=== PATIENT | male | born 1980 | race Caucasian/White ===

== ENCOUNTER 2022-07-18 13:31 | Emergency (ER) | payer MEDICARE, SELFPAY ==
[2022-07-18 13:32] VITALS: BP 164/148; PULSE 110; RESP 18; TEMP 35.5; O2SAT 91; BMI 29.5
--- NOTE | 2022-07-18 13:41 | EX.ED.VIS.PS ---
HPI HPI - Psych History of Present Illness Chief Complaint: Mental Health Narrative Narrative: 41-year-old male presenting with chief complaint of waking up this morning with somebody else's feet and hands. He requests a DNA test on his feet and hands to see who they belong to. He states he can see a clearly demarcated line near his ankles where new feet were attached. Patient does not have any pain. He states he is from [facility] and does not know how long he has been here and does not know how he got here. He has no suicidal or homicidal ideation. [facility] Medical History Bipolar 1 disorder Home Medications NK 07/18/22 [History Last Taken Unknown] Allergy/AdvReac Type Severity Reaction Status Date / Time No Known Allergies Allergy Verified 07/18/22 13:32 Social History Smoking Status: Current every day smoker tobacco type: cigarettes ROS ROS ED Constitutional Constitutional ED: Denies chills or fever(s) Eyes Eyes: Denies change in vision or diplopia ENT ENT ED: Denies rhinorrhea or sore throat Cardiovascular Cardiovascular: Denies chest pain or palpitations Respiratory/Chest Respiratory/Chest: Denies cough or dyspnea Gastrointestinal Gastrointestinal: Denies abdominal pain or constipation Genitourinary Genitourinary ED: Denies dysuria or hematuria Musculoskeletal Musculoskeletal: Denies arthralgias Integumentary Denies abscess or Abrasions Neurologic Neurologic: Denies headache(s) or paresthesias Psychiatric Psychiatric: Denies suicidal ideation or suicidal thoughts EXAM Physical Exam Const Vital Signs: 07/18/22 13:32 07/18/22 15:11 Temperature 96 F L Temperature Source Temporal Pulse Rate 110 H Respiratory Rate 18 16 Blood Pressure 164/148 H Blood Pressure Mean 153 Pulse Ox 91 Oxygen Delivery Method Room Air Positive well nourished General Appearance ED: NAD; Negative for pallor HEENT Reports moist mucous membranes normocephalic Eyes PERRL and EOMs intact bilaterally Resp normal respiratory effort Cardio Rate: regular rate Rhythm: regular rhythm Neuro oriented x3 and CN's II-XII intact bilaterally Sensorium / Orientation: alert Psych denies homicidal ideation and denies suicidal ideation Appearance: grossly normal Attitude: calm and bizarre Activity / Motor Behavior: hyperactive and disorganized Thought Content: No suicidality, No homicidality and hallucination(s) Positive for visual Memory / Cognition: memory grossly impaired and cognition grossly impaired Insight: poor Judgement: poor Skin General Skin Exam: Negative for jaundice or pallor MDM MDM MDM Narrative Medical decision making narrative: Blood work was obtained for medical clearance. CBC and CMP are normal. Urine drug screen negative. EtOH normal. Renal function electrolytes within normal limits with subsequent potassium of 3.2 which will be repleted orally. Patient discussed with social work and they feel he needs to be placed. They stated that he started talking about the [place] of [place] and feeling like [place] is like [place] or [place] because the vodka is cheap here. He also stated to them that he was not from the same [place]. This is in addition to his belief that his hands and feet are on his own and request to have them DNA tested. Patient does not appear to have any local resources and he does not have any coping skills except for to smoke marijuana. At this point I think he needs to be stabilized inpatient. Impression: 1. Acute psychosis Lab Data Attestation: I reviewed the patient's lab results. Labs: Laboratory Results - last 24 hr 07/18/22 07/18/22 07/18/22 14:10 14:10 14:10 WBC 11.1 H RBC 5.51 Hgb 15.5 Hct 46.0 MCV 83.5 MCH 28.1 MCHC 33.7 RDW Std Deviation 39.4 RDW Coeff of Shirlene 12.9 Plt Count 319 MPV 10.6 Immature Gran % (Auto) 0.300 Neut % (Auto) 69.7 Lymph % (Auto) 21.8 Angelina % (Auto) 5.5 Eos % (Auto) 2.1 Baso % (Auto) 0.6 Absolute Neuts (auto) 7.7 Absolute Lymphs (auto) 2.41 Nucleated RBC % 0 Sodium Potassium Chloride Carbon Dioxide Anion Gap BUN Creatinine Estim Creat Clear Calc Est GFR (MDRD) Af Amer Est GFR (MDRD) Non-Af BUN/Creatinine Ratio Glucose Calcium Total Bilirubin AST ALT Alkaline Phosphatase Total Protein Albumin Globulin Albumin/Globulin Ratio Urine Opiates Screen NEGATIVE Urine Methadone Screen NEGATIVE Ur Barbiturates Screen NEGATIVE Ur Phencyclidine Scrn NEGATIVE Ur Amphetamines Screen NEGATIVE MDMA (Ecstasy) Screen NEGATIVE U Benzodiazepines Scrn NEGATIVE Urine Cocaine Screen NEGATIVE U Cannabinoids Screen NEGATIVE Ur Drug Screen Comment Ethyl Alcohol < 3.0 07/18/22 14:10 WBC RBC Hgb Hct MCV MCH MCHC RDW Std Deviation RDW Coeff of Shirlene Plt Count MPV Immature Gran % (Auto) Neut % (Auto) Lymph % (Auto) Angelina % (Auto) Eos % (Auto) Baso % (Auto) Absolute Neuts (auto) Absolute Lymphs (auto) Nucleated RBC % Sodium 138 Potassium 3.2 L Chloride 103 Carbon Dioxide 27.0 Anion Gap 8 BUN 3 L Creatinine 0.75 Estim Creat Clear Calc 127.00 Est GFR (MDRD) Af Amer 146 Est GFR (MDRD) Non-Af 121 BUN/Creatinine Ratio 4.0 L Glucose 105 Calcium 9.3 Total Bilirubin 0.50 AST 23 ALT 44 Alkaline Phosphatase 99 Total Protein 8.1 Albumin 4.3 Globulin 3.8 Albumin/Globulin Ratio 1.1 Urine Opiates Screen Urine Methadone Screen Ur Barbiturates Screen Ur Phencyclidine Scrn Ur Amphetamines Screen MDMA (Ecstasy) Screen U Benzodiazepines Scrn Urine Cocaine Screen U Cannabinoids Screen Ur Drug Screen Comment Ethyl Alcohol Discharge Plan Triage Chief Complaint: Mental Health ED Provider: Keon Roland Dx/Rx/DC Orders Prescriptions: No Action NK Primary Care Provider: Care Physician,No Primary Referrals: NOT,DEFINED [Non-Staff] -
[2022-07-18 14:22] LABS: Absolute Lymphocyte Count 2.41 X10^3/uL (0.83-4.51); Absolute Neutrophil Count 7.7 X10^3/uL (2.0-7.7); Basophil# 0.07 X10^3/uL; Basophil% 0.6 % (0-1); Eosinophil# 0.23 X10^3/uL; Eosinophils% 2.1 % (0-5); Hemoglobin 15.5 g/dL (13.0-16.5); Lymphocyte # 2.41 X10^3/ul (0.83-4.51); Lymphocyte % 21.8 % (19-41); Mean Corp Hgb Conc 33.7 g/dL (32-36); Mean Corpuscular Hgb 28.1 pg (27.0-32.0); Mean Corpuscular Volume 83.5 fL (80-94); Mean Platelet Vol. 10.6 fl (6.2-12.0); Monocyte# 0.61 X10^3/uL; Monocyte% 5.5 % (0-10); NRBC Flagged by Analyzer 0 % (0-5); Neutrophil # 7.72 X10^3/uL (2.7-7.7); Neutrophil % 69.7 % (47-70); Platelet Count 319 K/mm3 (150-450); RBC Distribution Width CV 12.9 % (11.6-14.6); RBC Distribution Width SD 39.4 fl (35.1-43.9); Red Blood Count 5.51 M/mm3 (4.6-6.2); White Blood Count 11.1 K/mm3 (4.4-11.0)
[2022-07-18 14:40] LABS: BUN 3 mg/dL (7-18); Creatinine, Serum 0.75 mg/dL (0.70-1.30); Glucose 105 mg/dL (74-106)
[2022-07-18 14:41] LABS: ALB/GLOB Ratio 1.1 RATIO (0.9-2.4); AST(SGOT) 23 U/L (15-37); Alanine Aminotransfer ALT/SGPT 44 U/L (16-61); Albumin, Serum 4.3 g/dL (3.2-5.0); Alkaline Phosphatase 99 U/L (45-117); Anion Gap 8 (5-15); Calcium,Total 9.3 mg/dL (8.5-10.1); Chloride 103 mmol/L (98-107); EST Glomerular Filtration Rate 121 mL/min (>60); Est Glom Filt Rate - Afr Amer 146 mL/min (>60); Globulin 3.8 g/dL (2.2-4.2); Potassium 3.2 mmol/L (3.5-5.1); Protein, Total 8.1 g/dL (6.4-8.2); Sodium Level 138 mmol/L (136-145)
--- NOTE | 2022-07-18 14:42 | CM.ED ---
Addendum entered by Carrie Osman 07/18/22 15:03: Per patient is alert x3. 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 Patient later stated that he wants his feet cut off as the feet are different and has told staff that he has someone else's feet. Patient said that this occurred overnight. Patient was asked when he realized this and he said I don't know. Patient drove himself to the hospital. Patient said that he was told he is in [place] but the [place] I know is flat and doesn't have mountains. Patient said [place] Patient repeatedly voiced I don't understand .. there are [place] in [place] and I have [place]. Patient said it seems like this is [place] or [place] as the vodka is cheap and there is no Jeremiah Beam or [place]. Patient said I am not from the same [place]. Patient said I am not allowed to leave the [place]. Patient also stated that Mountains do not spring up overnight. Patient states that he hears voices 24/03 and when asked what the voices say he said what don't they say.. my psychiatrist doesn't think I hear them and they are in my head. Patient denied AH. Marital History: Identified Gender: Male Identified Sexual Orientation: Heterosexual Living Situation: Patient reports he has a apartment in [place]. He lives by himself. Patient slept in a car overnight. The car was parked at a gas station. Support: Patient said that his support is his mother, who resides in [place]. History: Denied Education and Employment History: Patient graduated high school. 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 Patient reports he gets disability due to being Bipolar. No learning issues or delays. Mental Health History: Patient said that he has a psychiatrist but I haven't seen him in awhile.. last time I saw him I threw him in group home. Patient repots his psychiatrist is from [facility]. Patient has no counselor or casemanager. Patient reports that he has had psychiatric hospitalization in the past at the [facility]. Patient said that he doesn't know how many time he has had psychiatric hospitalization. Triggers: Patient said that his trigger is waking up with different feet.. I want them cut off and then talked about his DNA being different. Coping Skills: Patient said don't you in [place] have medical weed? when asked about his coping skills. Patient reports no other coping skills. Abuse Issues: When asked about history of abuse patient said I don't know.. I can't answer that. Substance Abuse: Patient said that he does not have any mood altering substance or head change in his body. 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 Patient said there might be meth in my system and stated he has used meth within the last month but has been clean for a week. P Risk to Self and Others: Suicidal: Patient denied Homicidal: Patient denied Violence: Patient denied violence to self or others. Reports he has broken items. Mental Status Exam Patient reports he has been told he is in [place]. Memory: Intact Appearance: Disheveled Communication Pattern: : Does not initiate. Responds to question. Fragmented at times. Perseverates on his feet. Thought Process: Reports AH. Denied VH. General Intellectual Functioning: Average Judgment: Poor Insight: Poor SW consulted with MD Roland. MD Roland concurs with this documentation writer that patient needs inpatient psych for crisis stabilization and medication management. Plan: Inpatient psych Carrie CHACON
[2022-07-18 14:46] LABS: Alcohol, Blood (Medical)-Serum < 3.0 mg/dL
[2022-07-18 14:54] LABS: Amphetamine Urine VISTA NEGATIVE (<1000 ng/mL); Barbiturate Urine VISTA NEGATIVE (< 200 ng/mL); Benzodiazepine Urine VISTA NEGATIVE (< 200 ng/mL); Cocaine Urine VISTA NEGATIVE (< 300 ng/mL); Ecstacy Urine VISTA NEGATIVE (< 500 ng/mL); Methadone Urine VISTA NEGATIVE (< 300 ng/mL); PCP Urine VISTA NEGATIVE (< 25 ng/mL); THC Urine VISTA NEGATIVE (< 50 ng/mL); Vista UDS pH Range 6
[2022-07-18 15:11] VITALS: RESP 16
--- NOTE | 2022-07-18 16:04 | CM.ED ---
SW Note SW [facility]ed [facility]. [facility] had voiced they can take patient's [place] [employer] Medicare. SW received call from Aj. Patient was accepted by [facility] and is going to the Dual Diagnosis unit. Rn to Rn is [phone]. updated and RN updated. Plan: [facility] Carrie CHACON
--- NOTE | 2022-07-18 16:05 | ED.RN ---
CALLED PING ETA 60-90 MINUTES
[2022-07-18 16:16] VITALS: RESP 16
[2022-07-18 17:10] VITALS: BP 154/128; PULSE 102; RESP 18; O2SAT 98
== END 2022-07-18 17:30 ==
PROVIDERS: Emergency Provider Student in an Organized Health Care Education/Training Program; Visit Provider Student in an Organized Health Care Education/Training Program
DX: F23 Brief psychotic disorder (principal); F17.210 Nicotine dependence, cigarettes, uncomplicated
CPT/HCPCS: 80053; 80307; 82077; 85025; 87811; 99283